=== PATIENT | female | born 1990 | race American Indian/Alaskan Native ===

== ENCOUNTER 2022-06-24 17:58 | Observation (INO) ==
[2022-06-24] MEDS ORDERED: BETAMETH SOD PHOS/ACETATE IA 6 MG/ML IM STA (18:55)
[2022-06-24] MEDS ORDERED: D5W AND LACTATED RINGERS 1,000 ML IV SCH (19:00)
[2022-06-24 19:23] LABS: Basophils # (auto) 0.02 K/uL (0-0.2); Basophils % (auto) 0.1 %; Eosinophils # (auto) 0.09 K/uL (0-0.50); Eosinophils % (auto) 0.7 %; Hematocrit (blood only) 32.9 % (34.1-44.9); Hemoglobin 11.2 g/dl (12.0-16.0); Immature Granulocytes # (auto) 0.06 K/uL (0.00-0.02); Immature Granulocytes % (auto) 0.4 %; Lymphocytes # (auto) 2.17 K/uL (1.2-3.4); Lymphocytes % (auto) 16.2 %; Mean Corpuscular Hemoglobin 27.5 pg (25.0-34.0); Mean Corpuscular Volume 80.6 fL (80.0-100.0); Mean Platelet Volume 9.1 fL (9.4-12.3); Monocytes # (auto) 0.85 K/uL (0.24-0.82); Monocytes % (auto) 6.3 %; Neutrophils % (auto) 76.3 %; Platelet Count 374 K/uL (130-400); RDW Standard Deviation 40.3 fL (36.4-46.3); Red Blood Count 4.08 M/uL (3.93-5.22); White Blood Count 13.39 K/ul (4.8-10.8)
--- NOTE | 2022-06-24 19:25 | History & Physical Report ---
Date of Service June 24, 2022 Assessment & Plan (1) labor: Plan: Patient found to have cervical dilation c/w labor. Unclear to me given her long history of vaginal bleeding during this (without active exacerbation), her current quiet toco tracing, and her lack of evident distress while observed here on L&D, whether this is active/acute labor or represents a somewhat slower process that has been ongoing. I do feel she is stable for transfer. Recent examinations suggest her dilation is at least new since Jun 16, on which date she reported significant vaginal bleeding but was documented Cl/Th/Hi in the office per her chart. Discussed the case with Dr. De La Cruz at [facility] who accepts the patient in transfer, having confirmed available space in NICU and L&D. At this time we are unable to fly due to weather conditions so the fastest available ground transport is being worked out. Meanwhile BMTZ, GBS prophylaxis and Magnesium (6g load / 2g-hr) will be started and an IV site will be obtained in preparation for transfer. CO VID swab is pending. History of Present Illness Primary Care Provider: Kenan Lopez, DO 31yo at 24w6d presents unannounced to L&D with complaint of contractions [id number] x "a few" contractions this evening. She has no LOF, good movement. She has had vaginal bleeding throughout her entire to date, and has had multiple exams for this reason, most recently last week - no FIDELIA, no polyp, and no cervical change has been found to explain the bleeding at any of these exams. She has also not been noted to have hemorrhoids, though she does c/o chronic constipation. The patient states she continues to have mucousy-bloody discharge this evening which is unchanged from her baseline. She shows me photos on her phone of scant brown-red stains in mucous on toilet paper. It was the lower abdominal cramping that caused her to present this evening. Allergies Allergy/AdvReac Type Severity Reaction Status Date / Time No Known Allergies Allergy Verified 06/24/22 19:19 Home Medications Medication Instructions Recorded Confirmed Type prenat.vits,porfirio,bpc-hdcv-pqnyf 1 tab PO DAILY 03/04/22 06/24/22 History Past Med/Surg History Surgical History delivery delivered 2017 Family History Father Hypertension Denies family history of Ovarian cancer Prostate cancer Myocardial infarction Breast cancer Colorectal cancer Social History Smoking Status: Never smoker Second Hand Exposure: No; Hx Alcohol Use: No Hx Substance Use: No Preferred Language: Kiswahili Visual Impairment: No Limitations Hearing Ability: Normal marital status: marital status details: Herberth (43) [phone] Current Living Situation: Family Current Living Situation Comment: Lives with and son current occupational status: unemployed current occupation: Homemaker How many Children do You have: 1 Feels Safe at Home: Yes Safety Concerns: Feels Safe At This Time Childhood Exposure to Second-Hand Smoke: No Dental Care, Regularly: Yes Physical Activity Frequency: Does not Exercise Physical Activity Frequency Comment: Bleeding due to exercise (vaginal) Seatbelt Use: always Sunscreen Use: Yes Physical Exam Constitutional: WD/WN, vitals as above Eyes: PERRL, conjunctivae normal, anicteric sclerae ENMT: external ear and nose normal, oropharynx normal Neck: supple Respiratory: normal respiratory effort and able to speak in complete sentences; no respiratory distress Cardiovascular: Rate/Rhythm: regular rate and regular rhythm Gastrointestinal (Abdomen): Gravid / AGA, nontender Musculoskeletal: no cyanosis or clubbing, extremities motor strength 5/5 Skin: no rashes, warm and dry Neurologic: patellar DTR's 2+ bilat, sensation intact Psychiatric: A+Ox3, euthymic affect Genitourinary: Speculum/Bimanual Exam: no vaginal bleeding (Despite picture seen on pt's phone, no blood on glove after CVE.) and uterus nontender OB Exam Abdomen: + vertex (confirmed by US, placenta anterior, fluid subj normal), + estimated weight (7) and + regular contractions ([place] quiet. Pt c/o ctx Q10-15 for one hour.) Manual OB Exam: + cervical dilation 4 cm, + cervical effacement 80%, + station -1 and + amniotic fluid (No leaking evident, bag palpated, fluid WNL on US) OB Exam Monitor Tracing: + external FHT monitor used, + external uterine monitor used and + category I Lymphatic: no cervical or axillary lymphadenopathy Results & Data Results & Data ([facility]) Vital Signs (Past 12 Hours) Vital Signs Temp Pulse Resp BP 06/24/22 18:26 102 H 101/62 06/24/22 18:05 98.4 F 20 PG Care Time/CCT Total # of Minutes Spent Total Time Spent with Patient: Total time spent is greater than 50% in coordination of care (as documented) at patient's floor/unit and/or counseling patient: Coding Level of Care Code None Diagnoses labor O60.00
[2022-06-24] MEDS ORDERED: MAG SULFATE 6GM BOLUS FROM BAG IV ONE (19:35)
[2022-06-24] MEDS ORDERED: PENICILLIN G POTASSIUM 6 MU in DEXTROSE 5% 250 ML IV STA (19:38)
[2022-06-24] MEDS ORDERED: MAGNESIUM SULFATE / WTR 40 GM/1,000 ML BAG IV SCH (19:45)
[2022-06-24 19:55] LABS: Anion Gap 6 (3-11); BUN Creatinine Ratio 15.4 (10-20); Blood Urea Nitrogen 6 mg/dl (6-23); Calcium 9.2 mg/dl (8.5-10.1); Carbon Dioxide 24 mmol/L (21-32); Chloride 106 mmol/L (98-107); Est GFR (African American) > 150.0 ml/min; Est GFR (Non-African American) 141.9 ml/min; Glucose 91 mg/dl (70-99(Fasting)); Potassium 3.5 mmol/L (3.5-5.1); Sodium 136 mmol/L (136-145)
[2022-06-24] MEDS ORDERED: PENICILLIN G POTASSIUM 3 MU in DEXTROSE 5% 100 ML IV PRN (22:34)
--- NOTE | 2022-06-26 07:57 | Discharge Summary ---
Date of Service June 26, 2022 Admission HPI Per Admitting Provider 31yo at 24w6d presents unannounced to L&D with complaint of contractions [id number] x "a few" contractions this evening. She has no LOF, good movement. She has had vaginal bleeding throughout her entire to date, and has had multiple exams for this reason, most recently last week - no FIDELIA, no polyp, and no cervical change has been found to explain the bleeding at any of these exams. She has also not been noted to have hemorrhoids, though she does c/o chronic constipation. The patient states she continues to have mucousy-bloody discharge this evening which is unchanged from her baseline. She shows me photos on her phone of scant brown-red stains in mucous on toilet paper. It was the lower abdominal cramping that caused her to present this evening. Hospital Course (1) labor: Transferred to [facility] with 5cm cervical dilation. Coding Level of Care Code OBSERV/HOSP SAME DATE LVL 2 Diagnoses labor O60.00
== END 2022-06-24 21:16 | disposition short-term general hospital (02) ==
LOC: 4S1 17:58 → OPB 17:58 → 4S1 18:00